=== PATIENT | male | born 1965 | race American Indian/Alaskan Native ===

== ENCOUNTER 2019-02-08 06:01 | Day surgery (SDC) | payer OTHER ==
[~2019-02-08 06:01] MED LIST: TETRACAINE 0.5% OS SCH
[2019-02-08] MEDS: MYDRIACYL OS SCH ×3 (07:03→07:16)
[2019-02-08] MEDS: AK-Dilate OS SCH ×3 (07:03→07:16)
[2019-02-08] MEDS ORDERED: HumuLIN R SUB-Q NR (07:03)
[2019-02-08] MEDS: VIGAMOX OS SCH ×3 (07:03→07:16)
--- NOTE | 2019-02-08 07:07 | Anesthesia Consultation ---
Anesthesia Consult and Med Hx Date of service: 02/08/19 - Airway Anesthetic Teeth Evaluation: Good, Bridges ROM Head & Neck: Adequate Mental/Hyoid Distance: Adequate Mallampati Class: Class III Intubation Access Assessment: Possibly Difficult - Pulmonary Exam CTA: Yes - Cardiac Exam Cardiac Exam: RRR - Pre-Operative Health Status ASA Pre-Surgery Classification: ASA3 Proposed Anesthetic Plan: MAC - Pulmonary Hx Smoking: No Hx Respiratory Symptoms: No Hx Sleep Apnea: Yes (compliant with CPAP) - Cardiovascular System Hx Hypertension: Yes (no antihypertensivess today) Hx Heart Attack/AMI: No Hx Percutaneous Transluminal Coronary Angioplasty (PTCA): No Hx Cardia Arrhythmia: No - Central Nervous System Hx Seizures: No CVA: No Hx Back Pain: Yes - Gastrointestinal Hx Gastroesophageal Reflux Disease: Yes (controlled) - Endocrine Hx Renal Disease: No Hx Liver Disease: No Hx Insulin Dependent Diabetes: Yes Hx Thyroid Disease: No - Other Systems Hx Obesity: Yes - Additional Comments Anesthesia Medical History Comments: No hx anesthetic complications. Will give insulin for elevated glucose preop and recheck.
--- NOTE | 2019-02-08 07:07 | Anesthesia Day of Surgery ---
Anesthesia Day of Surgery - Day of Surgery Patient Examined: Yes Patient H&P Reviewed: Yes Patient is NPO: Yes
[2019-02-08] MEDS ORDERED: SUBLIMAZE ONE (07:26)
[2019-02-08] MEDS ORDERED: VERSED ONE (07:26)
[2019-02-08] MEDS ORDERED: WATER FOR IRRIG STERILE IR ONE (07:56)
[2019-02-08] MEDS ORDERED: PRED FORTE 1% ONE (07:56)
[2019-02-08] MEDS ORDERED: DIAMOX PO NR (08:22)
--- NOTE | 2019-02-08 08:41 | Operative Report ---
Operative Report Operative Report: PATIENT'S NAME: DATE OF : DATE OF SURGERY: 02/08/2019 PREOPERATIVE DIAGNOSIS: Cataract left eye POSTOPERATIVE DIAGNOSIS: Same OPERATIVE PROCEDURE: Phacoemulsification with intraocular lens implantation, left eye SURGEON: Mar Milton M.D. LOZENGE MAKER HELPER SURGEON: Cristian Lens: [id number] 22.0 D ANESTHESIA: Monitored anesthesia care in combination with topical and intracameral anesthesia because of the established specific risk of reflux, arrhythmias, or anxiety attacks associated with ocular manipulation, as well as the difficulty of the wool fleece grader to manage such potentially catastrophic events while simultaneously attempting to complete the surgical procedure and was deemed necessary for the patient's safety to have an Oil Program Compliance Specialist present during the procedure whenever possible. An Oil Program Compliance Specialist was utilized to regulate the intravenous sedation of the patient so the patient was cooperative yet not asleep in order for the patient to successfully maintain fixation of the eye on the operating light of the microscope. COMPLICATIONS: No surgical complications No blood loss. ALLERGIES: No known drug allergies PROGNOSIS: Excellent INDICATIONS FOR SURGERY: The patient is undergoing surgery in the hopes of eliminating or improving these visual difficulties. PROCEDURE: After arriving at the surgery center, the patient was given topical anesthetic and dilating drops, as noted in the record. The patient was then taken into the operating room and given more anesthetic drops. The eyelids, lashes, and lid margins were scrubbed with Betadine solution, and the patient was draped. The Nurse Oil Program Compliance Specialist administered IV sedation and monitored the patient during the procedure. The eye was then fixated with a 0.12, and a stab incision was made in the peripheral clear cornea into the anterior chamber. This was made on my left side. Viscoelastic was next used to fill the anterior chamber. The eye was once again fixated with the 0.12 forceps and a keratome was used make an incision in clear cornea peripherally on my right hand side temporally. The capsule forceps were used to open the central anterior capsule and then make a continuous round capsulotomy. Hydrodissection was carried out utilizing a cannula and balanced salt solution to delineate the cortical material from the capsule and the nucleus from the cortical material. The phaco tip was introduced into the eye and used to remove the anterior cortical material in the area of the capsulotomy. Then the phaco tip was buried into the nucleus, and a chopping instrument was introduced into the eye and used to provide countertraction in the nucleus between this instrument and the phaco tip fracturing the nucleus. This procedure was repeated multiple times, providing multiple small segments of the lens, and then the phaco tip was used to remove each of these segments. An I/A tip was then used to remove the remaining cortex. The anterior chamber was refilled with viscoelastic. An one-piece, acrylic intraocular lens was then placed into an inserting cartridge. The tip of the inserting cartridge was introduced into the keratome incision and into the anterior chamber. The implant was gently advanced through the cartridge and into the eye, where it unfolded, and both haptics were placed in the capsular bag, where it centered nicely and appeared to be well fixated. After placement of the intraocular lens, the I~and~A handpiece was placed back into the eye and used to remove the viscoelastic, including viscoelastic that was behind the optic of the intraocular lens. The anterior chamber was then filled with balanced salt solution, and hydration of the wound was used to cause swelling of the wound and more appropriate watertight closure. When the wound was found to be firm, the patient was asked to comment on how bright the light was. If there was no light perception at all or if the light was substantially dimmer than during the rest of the surgery, the amount of fluid in the eye was decompressed to lower the intraocular pressure until the patient could see the bright light again. This was done to avoid any damage or decreased blood flow to the optic nerve. MEDICATIONS APPLIED AT END OF SURGERY: One drop of Pred Forte and Vigamox The patient was given a shield to wear at night and was instructed not to rub or push on the eye. DISCHARGE SUMMARY: The patient was released in stable condition. The patient and those with the patient were given a written sheet of postoperative instructions and counseling on any abnormal laboratory studies. The patient is to see us tomorrow for follow-up in the office and is to call immediately for any difficulties. Mar Milton M.D. Date
--- NOTE | 2019-02-08 08:42 | Short Stay Summary ---
Short Stay Documentation Date of service: 02/08/19 - History H&P: obtained from office - Allergies and Medications Current Medications: Allergies No Known Allergies Allergy (Verified 12/06/18 15:34) Home Medications Medication Instructions Recorded Confirmed Last Taken Type Aspirin [Adult Aspirin] 162 mg PO DAILY 12/06/18 12/07/18 12/06/18 History AtorvaSTATin [Lipitor] 20 mg PO QHS 12/06/18 12/07/18 12/06/18 History Empagliflozin [Jardiance] 25 mg PO DAILY 12/06/18 12/07/18 12/06/18 History Gabapentin [Neurontin] 800 mg PO TID 12/06/18 12/07/18 12/06/18 History Ibuprofen [Motrin] 800 mg PO Q8HR PRN 12/06/18 12/07/18 12/06/18 History Insulin Regular, Human [Novolin R] 20 units SQ TID 12/06/18 12/07/18 12/06/18 History Lisinopril [Zestril TAB] 10 mg PO QDAY 12/06/18 12/07/18 12/06/18 History Omeprazole Magnesium [PriLOSEC Otc] 20 mg PO QDAY 12/06/18 12/07/18 12/06/18 History Pregabalin [Lyrica] 75 mg PO TID 12/06/18 12/07/18 12/07/18 History Zolpidem [Ambien] 10 mg PO QHS 12/06/18 12/07/18 12/06/18 History hydroCHLOROthiazide [HCTZ] 25 mg PO QDAY 12/06/18 12/07/18 12/06/18 History metFORMIN [Glucophage] 500 mg PO BID 12/06/18 12/07/18 12/06/18 History Active Medications Acetazolamide (Diamox) 500 mg PO ONCE NR Stop: 02/08/19 09:30 Last Admin: 02/08/19 08:40 Dose: 500 mg Documented by: Moxifloxacin HCl (Vigamox) 1 drops OS Q5MIN YOLI Stop: 02/10/19 06:01 Phenylephrine HCl (Ak-Dilate) 1 drops OS Q5MIN YOLI Stop: 02/10/19 06:01 Prednisolone Acetate (Pred Forte 1%) 1 drops OS QID YOLI Last Admin: 02/08/19 08:35 Dose: 1 drops Documented by: Tetracaine HCl (Tetracaine 0.5%) 1 drops OS Q5M YOLI Stop: 02/08/19 16:00 Tropicamide (Mydriacyl) 1 drops OS Q5MIN YOLI Stop: 02/10/19 06:01 - Brief post op/procedure progress note Date of procedure: 02/08/19 Pre-op diagnosis: left cataract Post-op diagnosis: same Procedure: Phacoemulsification with intraocular lens insertion left eye Anesthesia: MAC, local Surgeon: VANESSA SERNA Estimated blood loss: none Pathology: none Condition: stable - Disposition Condition at discharge: Good Disposition: DC-01 TO HOME OR SELFCARE - Discharge Diagnoses (1) Cortical age-related cataract of left eye Status: Resolved Short Stay Discharge Plan Additional Instructions: FOLLOW SURGEON INSTRUCTION SHEETS. RTO 7-13 AT 1000AM. Follow up with: [facility] [Primary Care Provider] - 7 Days
--- NOTE | 2019-02-08 09:34 | Post Anesthesia Evaluation ---
- Post Anesthesia Evaluation Patient Participated: Yes Airway Patent: Yes Stable Respiratory Function: Yes Nausea/Vomiting: No Temp > 96.8F: Yes Pain Manageable: Yes Adequeate Hydration: Yes Anesthesia Complications: No
[2019-02-08 09:39] VITALS: BP 113/70
[2019-02-08] MEDS ORDERED: PRED FORTE 1% OS SCH (10:00)
== END 2019-02-08 09:00 | disposition home or self-care (01) ==
LOC: OR 06:01
DX: E11.36 Type 2 diabetes mellitus with diabetic cataract (principal); H25.012 Cortical age-related cataract, left eye; G43.909 Migraine, unspecified, not intractable, without status migrainosus; E78.00 Pure hypercholesterolemia, unspecified; I10 Essential (primary) hypertension; G47.30 Sleep apnea, unspecified; K21.9 Gastro-esophageal reflux disease without esophagitis; E66.9 Obesity, unspecified; Z79.4 Long term (current) use of insulin; Z79.84 Long term (current) use of oral hypoglycemic drugs; Z79.82 Long term (current) use of aspirin; Z79.899 Other long term (current) drug therapy; Z98.41 Cataract extraction status, right eye; Z90.49 Acquired absence of other specified parts of digestive tract; Z98.890 Other specified postprocedural states; Z68.31 Body mass index [BMI] 31.0-31.9, adult
CPT/HCPCS: 66984; 82962; J2250; J3010; J1815; V2632